=== PATIENT | male | born 1950 | race Caucasian/White ===

== ENCOUNTER → 2019-11-02 | Outpatient (CLI) | payer MEDICARE, MEDICAID ==
--- NOTE | 2019-11-02 15:13 | US ---
EXAM DESCRIPTION: Testicular: Ultrasound. CLINICAL HISTORY: 69 years Male TESTICULAR SWELLING COMPARISON: None. TECHNIQUE: Transcutaneous scanning ; tomas-scale and Doppler modes. FINDINGS: Dimensions of the right testicle are 3.5 x 2.8 x 0.8 cm, with normal echogenicity and normal color Doppler flow. Epididymal head measures 7 x 7 x 3 mm, with normal echogenicity and normal color Doppler flow. No scrotal wall thickening. No Hydrocele. Soft tissue mass in the right inguinal canal and posterior to the right testicle in the scrotum, displacing the testicle and epididymis anterior. Dimensions of the left testicle are 3.6 x 1.9 x 1.4 cm, with normal echogenicity and normal color Doppler flow. Epididymal head measures 11 x 11 x 3 mm, with 3.3 mm and 3 mm cysts. Otherwise normal echogenicity and normal color Doppler flow. No scrotal wall thickening. No Hydrocele. IMPRESSION: 1. Large hernia into the right inguinal canal and right scrotum compressing the testicle against the anterior wall. Normal size and vascularity of the testicle and epididymis. No free fluid 2. No hernia in the left scrotum or inguinal canal. Left Testicle and epididymis are unremarkable except for 2 small cysts in the left epididymal head. No free fluid. Electronically signed by: Behzad Mae MD 11/02/2019 3:12 PM [employer]
== END ==
LOC: US 11:20
PROVIDERS: ATTEND Nurse Practitioner
DX: N50.89 Other specified disorders of the male genital organs (principal); N50.3 Cyst of epididymis; K40.90 Unilateral inguinal hernia, without obstruction or gangrene, not specified as recurrent